=== PATIENT | male | born 1970 | race Caucasian/White ===

== ENCOUNTER 2019-06-03 13:26 | Emergency (ER) | payer OTHER ==
[~2019-06-03] VITALS: Ht 190.5 cm; Wt 104.3 kg
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
[2019-06-03 13:50] VITALS: BP 130/78
[2019-06-03] MEDS ORDERED: PROTONIX IV IV STA (14:10)
[2019-06-03 14:26] LABS: BASOPHIL # 0.1 10^3/uL (0.0-0.1); BASOPHIL % 0.8 % (0.0-0.2); EOSINOPHIL # 0.2 10^3/uL (0.0-0.2); EOSINOPHIL % 2.9 % (0.0-5.0); HEMOGLOBIN 14.2 g/dL (13.9-16.3); LYMPHOCYTES # 1.9 10^3/uL (1.0-4.8); LYMPHOCYTES % 24.6 % (24.0-44.0); MEAN CELL HGB 30.7 pg (26-34); MEAN CORP VOLUME 90.5 fL (78-100); MEAN PLATELET VOLUME 9.8 fL (7.8-11.0); MONOCYTES # 0.5 10^3/uL (0.3-0.8); MONOCYTES % 5.8 % (5.0-12.0); NEUTROPHIL # 5.1 10^3/uL (1.8-7.7); NEUTROPHILS % 65.8 % (41.0-85.0); RED CELL DISTRIBUTION WIDTH 14.5 % (11.5-14.5); WHITE BLOOD CELL 7.8 10^3/uL (4.5-11.0)
[2019-06-03 14:45] LABS: CALCIUM 9.2 mg/dL (8.4-10.5); CARBON DIOXIDE 26.8 mmol/L (20.0-32)
[2019-06-03] MEDS ORDERED: PROTONIX IV IV ONE (14:46)
[2019-06-03 14:59] LABS: BILIRUBIN,URINE NEGATIVE (NEGATIVE); UROBILINOGEN,URINE NORMAL (NEGATIVE)
[2019-06-03 15:00] LABS: APPEARANCE,URINE CLEAR (CLEAR); UA COLOR YELLOW (YELLOW)
== END 2019-06-03 15:39 | disposition home or self-care (01) ==
LOC: ER 13:26
DX: K29.01 Acute gastritis with bleeding (principal); F17.210 Nicotine dependence, cigarettes, uncomplicated
CPT/HCPCS: 36415; 80053; 81000; 82150; 83690; 85025; 86677; 87086; 96374; 99284; C9113